=== PATIENT | male | born 1995 | race Hispanic/Latino ===

== ENCOUNTER 2017-05-03 07:01 | Emergency (ER) | payer OTHER ==
[~2017-05-03] VITALS: Ht 177.8 cm; Wt 100.0 kg
[2017-05-03 07:03] VITALS: BP 150/104; PULSE 77; RESP 18; O2SAT 95
[2017-05-03] MEDS ORDERED: Ondansetron 2 mg/mL 2 mL Inj ONE (07:13)
[2017-05-03 07:32] LABS: BASOPHILS % (AUTO) 0.2 % (0-3); EOSINOPHILS % (AUTO) 0.5 % (0-5); Mean Corpuscular Hemoglobin 30.3 pg (27.0-35.0); Mean Corpuscular Volume 87.4 fL (81-100); Platelet Count 237 bil/L (150-400)
[2017-05-03 08:06] LABS: Magnesium 1.8 mg/dL (1.6-2.6)
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
[2017-05-03] MEDS ORDERED: 0.9% Sodium Chloride 1,000 ML IV ONE (09:50)
[2017-05-03] MEDS ORDERED: Ondansetron 2 mg/mL 2 mL Inj IVPUSH ONE (09:50)
[2017-05-03] MEDS: HYDROmorphone 0.5 mg/0.5 mL iSecure Syringe IVPUSH PRN ×2 (10:05→12:26)
[2017-05-03 12:25] VITALS: BP 130/74; PULSE 67; RESP 16; O2SAT 99
[2017-05-03] MEDS ORDERED: Trimethoprim-Sulfa 160 mg-800 mg Tablet PO ONE (12:55)
[2017-05-03] MEDS ORDERED: ONDA8TAB10 PO (13:00)
[2017-05-03] MEDS ORDERED: HYDR-4003 PO (13:00)
[2017-05-03] MEDS ORDERED: SULF1TAB7 PO (13:00)
== END 2017-05-03 13:13 ==
LOC: SED 07:01
DX: A04.5 Campylobacter enteritis (principal); R06.00 Dyspnea, unspecified; R51 Headache; R42 Dizziness and giddiness; F17.200 Nicotine dependence, unspecified, uncomplicated; Z88.0 Allergy status to penicillin
CPT/HCPCS: 36415; 80053; 83605; 83690; 83735; 85025; 87507; 96374; 96375; 96376; 99285; J1170; J2405; J7030